=== PATIENT | female | born 1985 | race Caucasian/White ===

== ENCOUNTER → 2017-11-21 | Outpatient (CLI) | payer OTHER ==
[~2017-11-21] MED LIST: PRENTAB26 PO
== END | disposition home or self-care (01) ==
LOC: C.LABSPEC 14:26
PROVIDERS: ATTEND Obstetrics & Gynecology
DX: Z34.81 Encounter for supervision of other normal pregnancy, first trimester (principal)

== ENCOUNTER → 2017-11-21 | Outpatient (CLI) | payer OTHER | END | disposition home or self-care (01) | LOC: C.PAPS 16:40 | PROVIDERS: ATTEND Obstetrics & Gynecology | DX: Z34.81 Encounter for supervision of other normal pregnancy, first trimester (principal) ==

== ENCOUNTER → 2018-01-11 | Outpatient (CLI) | payer OTHER ==
--- NOTE | 2018-01-11 13:30 | DIAGNOSTIC IMAGING REPORT ---
LIMITED (US) CLINICAL HISTORY: 18.1 WEEKS CANNOT HEAR HEART BEAT COMPARISON STUDY: ultrasound 01/18/2016. FINDINGS: Real-time sonographic imaging of the fetus was performed with cash posting representative images submitted. heart rate was 149 bpm. The cervix is closed and measures up to 5 cm in length. There is a normal appearing anterior placenta. No evidence for subchorionic hematoma. Amniotic fluid volume appears to be within normal limits. anatomical survey was not performed. IMPRESSION: Single viable intrauterine gestation with a heart rate of 149 bpm. Electronically signed by: Yomi Mendoza M.D. 01/11/2018 1:28 PM Dictated Date/Time: 01/11/2018 1:15 PM
== END | disposition home or self-care (01) ==
LOC: C.ULTR 12:45
PROVIDERS: ATTEND Obstetrics & Gynecology
DX: O36.8320 Maternal care for abnormalities of the fetal heart rate or rhythm, second trimester, not applicable or unspecified (principal); Z3A.18 18 weeks gestation of pregnancy

== ENCOUNTER → 2018-02-03 | Outpatient (CLI) | payer OTHER | END | disposition home or self-care (01) | LOC: C.LAB 07:41 | PROVIDERS: ATTEND Obstetrics & Gynecology | DX: O99.810 Abnormal glucose complicating pregnancy (principal); Z3A.00 Weeks of gestation of pregnancy not specified ==

== ENCOUNTER → 2018-05-15 | Outpatient (CLI) | payer OTHER ==
[~2018-05-15] MED LIST changes: +ASPI-435; +LABE1TAB28 PO
== END | disposition home or self-care (01) ==
LOC: C.LABSPEC 14:44
PROVIDERS: ATTEND Obstetrics & Gynecology
DX: Z34.83 Encounter for supervision of other normal pregnancy, third trimester (principal); Z3A.00 Weeks of gestation of pregnancy not specified

== ENCOUNTER 2019-09-16 10:15 | Inpatient (IN) ==
--- OUTSIDE RECORDS SUMMARY | 2019-09-16 10:17 | External Medical Summary | Continuity of Care Document ---
:1985 Author Name Latonia Phipps, Provider Address Unavailable Unavailable , Care Team Providers Name Role Phone Chloe Phipps, Norbert Connell Unavailable [email or web address] Monica Wang Unavailable [email or web address] AARON Unavailable Unavailable Unavailable Unavailable Unavailable Problems Gestational diabetes mellitus (648.80) (O24.419) Allergies and Adverse Reactions Allergy history not documented Medications OneTouch Delica Lancets Fine MISC; Test 4 times daily Moise Harry S. Start: 23-Feb-2018 Quantity: 4 100 Unit Box Refills: 3 Keto-Diastix In Vitro Strip; USE DIRECTED. Moise Corona Norbert S. Start: 23-Feb-2018 Quantity: 1 100 Strip Box Refills: 3 OneTouch Verio In Vitro Strip; Check 4 x a day Rusty Corona Norbert S. Start: 23-Feb-2018 Quantity: 4 100 Strip Box Refills: 3 Procedures Procedures not documented Immunizations Immunizations not documented Plan of Treatment Planned Observations Planned Goals not documented Results No Known Results Results not documented Encounters Appointment; Malina Alvarenga R.D. 23-Feb-2018 14:00 Encounter Diagnosis: Problem not documented
--- OUTSIDE RECORDS SUMMARY | 2019-09-16 10:18 | External Medical Summary | Continuity of Care Document ---
:1985 Author Name Latonia Phipps, Provider Address Unavailable Unavailable , Care Team Providers Name Role Phone Chloe Phipps, Norbert Connell Unavailable [email or web address] Monica Wang Unavailable [email or web address] Marianela AARON Unavailable Unavailable Unavailable Unavailable Unavailable Problems Gestational diabetes mellitus (648.80) (O24.419) Allergies and Adverse Reactions Allergy history not documented Medications Keto-Diastix In Vitro Strip; USE DIRECTED. Moise Corona Norbert S. Start: 23-Feb-2018 Quantity: 1 100 Strip Box Refills: 3 OneTouch Verio In Vitro Strip; Check 4 x a day Rusty Corona Sep S. Start: 23-Feb-2018 Quantity: 4 100 Strip Box Refills: 3 OneTouch Delica Lancets Fine MISC; Test 4 times daily Carol castanon M.D. Sep S. Start: 23-Feb-2018 Quantity: 4 100 Unit Box Refills: 3 Procedures Procedures not documented Immunizations Immunizations not documented Plan of Treatment Planned Observations Planned Goals not documented Results No Known Results Results not documented Encounters Appointment; Malina Alvarenga R.D. 23-Feb-2018 14:00 Encounter Diagnosis: Problem not documented
[2019-09-16] MEDS ORDERED: SODIUM CHLORIDE 0.9% 1000ML 1,000 ML IV SCH (10:30)
[2019-09-16 11:30] LABS: Hematocrit (blood only) 38.9 % (37-47); Hemoglobin 13.2 g/dL (12.0-16.0); Immature Granulocytes # (auto) 0.03 K/uL (0.00-0.02); Immature Granulocytes % (auto) 0.4 %; Lymphocytes # (auto) 0.35 K/uL (1.2-3.4); Lymphocytes % (auto) 5.2 %; Mean Corpuscular Hemoglobin 30.5 pg (25-34); Mean Corpuscular Hgb Conc 33.9 g/dL (32-36); Mean Corpuscular Volume 89.8 fL (80-100); Mean Platelet Volume 11.5 fL (7.4-10.4); Monocytes # (auto) 0.32 K/uL (0.11-0.59); Monocytes % (auto) 4.8 %; Neutrophils % (auto) 89.6 %; Platelet Count 140 K/uL (130-400); RDW Coefficient of Variation 12.7 % (11.5-14.5); RDW Standard Deviation 41.6 fL (36.4-46.3); Red Blood Count 4.33 M/uL (4.2-5.4)
[2019-09-16 11:35] LABS: Appearance Urine Clear (Clear); Bacteria Urine Automated Negative (Negative); Bilirubin Urine Negative (Negative); Blood Urine Trace (Negative); Color Urine Dark Yellow; Epithelial Cell Urine Auto >30 /lpf (0-5); Glucose Urine UA Negative (Negative); Ketones Urine 2+ (Negative); Leukocyte Esterase Urine Trace (Negative); Nitrite Urine Negative (Negative); Protein Urine Trace (Negative); RBC Urine Automated 0-4 /hpf (0-4); Specific Gravity Urine 1.022 (1.000-1.030); Urobilinogen Urine Negative (Negative)
[2019-09-16 11:46] LABS: Albumin Level 3.8 gm/dl (3.4-5.0); BUN Creatinine Ratio 6.3 (10-20); Calcium 8.9 mg/dl (8.5-10.1); Creatinine Clr Calc Pharmacy 97.3 ml/min; Est GFR (African American) 82.7; Est GFR (Non-African American) 71.4; Magnesium 1.5 mg/dl (1.8-2.4); Potassium 3.1 mmol/L (3.5-5.1)
[2019-09-16 11:50] LABS: Bilirubin,Total 1.2 mg/dl (0.2-1); Globulin 3.9 gm/dl (2.5-4.0); Total Protein 7.7 gm/dl (6.4-8.2)
--- NOTE | 2019-09-16 12:41 | Emergency Department Note ---
History of Present Illness General Chief complaint: Abdominal Pain Stated complaint: ABDOMINAL PAIN, FEVER,NAUSEA Time Seen by Provider: 09/16/19 10:22 History of Present Illness Maximum Pain Intensity: 8 This is a 34-year-old female that presents to the emergency department via private vehicle with complaints of "abdominal pain, fever, nausea". The patient states that she was referred here by the family doctor to rule out appendicitis. She states that she has some mid to the right abdominal pain. She has associated nausea, diarrhea, intermittent fevers, decreased appetite and he adache. This is been ongoing since Monday night. It is worse with movement and ambulation. She had ibuprofen around 8:30 AM today. She rates her overall pain currently is an 8/10. She notes that she still has the appendix. Home Medications Home Medications Medication Instructions Recorded Confirmed Type ibuprofen 200 mg PO Q6H PRN 09/16/19 09/16/19 History Allergies Allergy/AdvReac Type Severity Reaction Status Date / Time No Known Allergies Allergy Unverified 09/16/19 11:17 Past Med/Surg History Medical History Anxiety Family history of diabetes mellitus History of depression HTN (hypertension) Morbid obesity with BMI of 40.0-44.9, adult hemorrhage Surgical History No history of previous surgery Social History Preferred Language: [place] Communication Ability: Effective Tank Inspector Required: No Beliefs That Will Affect Care: None marital status: Current Living Situation: Spouse Current Living Situation Comment: DAUGHTERS 2 YO AND 6 YO Feels Safe at Home: Yes Smoking Status: Former smoker Hx Alcohol Use: No Hx Substance Use: No Review of Systems A total of 10 systems reviewed and were otherwise negative Physical Exam Vital Signs Vital Signs - 24 hr 09/16/19 10:17 09/16/19 11:18 09/16/19 13:05 Temperature 37.9 C H Temperature Source Oral Pulse Rate 131 H Pulse Rate [Finger] 110 H 100 H Pulse Rhythm [Finger] Pulse Strength [Finger] Respiratory Rate 20 16 16 Respiratory Effort / Characteristics Non-Labored Spontaneous Respiratory Depth Normal Respiratory Pattern Blood Pressure 163/83 H Blood Pressure [Right Arm] 173/91 H 118/77 Blood Pressure Mean 109 Blood Pressure Mean [Right Arm] 118 90 Blood Pressure Position Sitting Blood Pressure Position [Right Arm] Pulse Oximetry 96 96 96 Oxygen Delivery Method Room Air Room Air Sepsis Recent Fever Within 48 Hours Yes Sepsis New/Unexplained Change in Mental Status No Sepsis Action Taken by Nursing No Action Required 09/16/19 14:36 09/16/19 15:55 09/16/19 15:57 Temperature 37.8 C H Temperature Source Oral Pulse Rate 103 H Pulse Rate [Finger] 103 H 116 H Pulse Rhythm [Finger] Regular Pulse Strength [Finger] Normal Respiratory Rate 16 20 24 Respiratory Effort / Characteristics Non-Labored Spontaneous Respiratory Depth Normal Respiratory Pattern Regular Blood Pressure 145/84 H Blood Pressure [Right Arm] 169/106 H 131/79 Blood Pressure Mean Blood Pressure Mean [Right Arm] 127 96 Blood Pressure Position Blood Pressure Position [Right Arm] Sitting Pulse Oximetry 98 95 96 Oxygen Delivery Method Room Air Room Air Sepsis Recent Fever Within 48 Hours Sepsis New/Unexplained Change in Mental Status Sepsis Action Taken by Nursing VITAL SIGNS - Vital signs and nursing notes were reviewed. Patient is febrile and tachycardic on arrival. GENERAL -34-year-old female appearing her stated age who is in no acute distress. She does not appear toxic, and is ambulating independently. Communicates well with provider and answers questions appropriately. SKIN - Without rashes. No meningeal or petechial rash. HEAD - NC/AT. EYES - Sclera anicteric. EARS - No deformities of external structures noted on gross examination bilaterally. NOSE - Midline and without cyanosis. No epistaxis or purulent drainage noted. MOUTH/OROPHARYNX - Without perioral cyanosis. NECK - Neck with FROM. No nuchal rigidity. LUNGS - Chest wall symmetric without accessory muscle use, intercostals retractions, or central cyanosis. Normal vesicular breath sounds CTA B/L. No wheezes, rales, or rhonchi appreciated. CARDIAC - RRR with S1/S2. No murmur, rubs, or gallops appreciated. ABDOMEN - Abdominal contour normal without pulsations or visible masses. BS normoactive all four quadrants. Patient has periumbilical and right lower quadrant abdominal tenderness on exam. The abdomen is soft, and nonrigid NEUROLOGIC - Cranial nerves II through XII grossly intact. PSYCH - A&O, and cooperates fully with examiner. Pt is very pleasant and interacts well with examiner. Course Administered Medications Ioversol (Optiray 320 100ml) 94 ml IV ONCE PRN PRN Reason: Interaction Checking Stop: 09/20/19 12:49 Last Admin: 09/16/19 12:51 Dose: 94 ml Documented by: [id number] Discontinued Medications Sodium Chloride (Nss 1000ml) 1,000 mls @ 999 mls/hr IV .Q1H1M OLGA Stop: 09/16/19 11:30 Last Infusion: 09/16/19 12:33 Dose: 0 mls/hr Documented by: [id number] Admin: 09/16/19 11:20 Dose: 999 mls/hr Documented by: [id number] Piperacillin Sod/Tazobactam Sod (Zosyn) 4.5 gm in 120 mls @ 240 mls/hr IV NOW ONE Stop: 09/16/19 14:49 Last Infusion: 09/16/19 15:06 Dose: 0 mls/hr Documented by: [id number] Admin: 09/16/19 14:35 Dose: 240 mls/hr Documented by: [id number] Acetaminophen (Ofirmev) 1,000 mg in 100 mls @ 400 mls/hr IV NOW STA Stop: 09/16/19 14:37 Last Infusion: 09/16/19 14:50 Dose: 0 mls/hr Documented by: [id number] Admin: 09/16/19 14:35 Dose: 400 mls/hr Documented by: [id number] Ondansetron HCl (Zofran) Confirm Administered Dose 4 mg .ROUTE .STK-MED ONE Stop: 09/16/19 14:39 Last Admin: 09/16/19 14:40 Dose: 4 mg Documented by: [id number] Scopolamine (Transderm-Scop) Confirm Administered Dose 1.5 mg .ROUTE .STK-MED ONE Stop: 09/16/19 16:13 Last Admin: 09/16/19 16:14 Dose: Not Given Documented by: [id number] Scopolamine (Transderm-Scop) 1.5 mg TD ONE ONE Stop: 09/16/19 16:13 Last Admin: 09/16/19 16:13 Dose: 1.5 mg Documented by: [id number] Medical Decision Making Laboratory Data Result diagrams: 09/16/19 11:15 09/16/19 11:15 Lab Results 09/16/19 09/16/1919 Range/Units 10:15 10:15 11:15 WBC 6.70 (4.8-10.8) K/uL RBC 4.33 (4.2-5.4) M/uL Hgb 13.2 (12.0-16.0) g/dL Hct 38.9 (37-47) % MCV 89.8 (80-100) fL MCH 30.5 (25-34) pg MCHC 33.9 (32-36) g/dL RDW Std Deviation 41.6 (36.4-46.3) fL RDW Coeff of Alfonso 12.7 (11.5-14.5) % Plt Count 140 (130-400) K/uL MPV 11.5 H (7.4-10.4) fL Immature Gran % (Auto) 0.4 % Neut % (Auto) 89.6 % Lymph % (Auto) 5.2 % [place] % (Auto) 4.8 % Eos % (Auto) 0.0 % Baso % (Auto) 0.0 % Immature Gran # (Auto) 0.03 H (0.00-0.02) K/uL Neut # (Auto) 6.00 (1.4-6.5) K/uL Lymph # (Auto) 0.35 L (1.2-3.4) K/uL [place] # (Auto) 0.32 (0.11-0.59) K/uL Eos # (Auto) 0.00 (0-0.5) K/uL Baso # (Auto) 0.00 (0-0.2) K/uL Sodium (136-145) mmol/L Potassium (3.5-5.1) mmol/L Chloride (98-107) mmol/L Carbon Dioxide (21-32) mmol/L Anion Gap (3-11) BUN (7-18) mg/dl Creatinine (0.6-1.2) mg/dl Est Cr Clr Drug Dosing ml/min Est GFR ( Amer) Est GFR (Non-Af Amer) BUN/Creatinine Ratio (10-20) Glucose (70-99) mg/dl Lactate (0.4-2.0) mmol/L Calcium (8.5-10.1) mg/dl Magnesium (1.8-2.4) mg/dl Total Bilirubin (0.2-1) mg/dl AST (15-37) U/L ALT (12-78) U/L Alkaline Phosphatase (45-117) U/L Total Protein (6.4-8.2) gm/dl Albumin (3.4-5.0) gm/dl Globulin (2.5-4.0) gm/dl Albumin/Globulin Ratio (0.9-2) Urine Color Dark Yellow Urine Appearance Clear (Clear) Urine pH 6.0 (4.5-7.5) Ur Specific [place] 1.022 (1.000-1.030) Urine Protein Trace H (Negative) Urine Glucose (UA) Negative (Negative) Urine Ketones 2+ H (Negative) Urine Blood Trace H (Negative) Urine Nitrite Negative (Negative) Urine Bilirubin Negative (Negative) Urine Urobilinogen Negative (Negative) Ur Leukocyte Esterase Trace H (Negative) Urine WBC (Auto) 1-5 (0-5) /hpf Urine RBC (Auto) 0-4 (0-4) /hpf U Hyaline Cast (Auto) 5-10 H (0-5) /lpf U Epithel Cells (Auto) >30 H (0-5) /lpf Urine Bacteria (Auto) Negative (Negative) POC Ur Test NEG (NEG) 09/16/19 09/16/19 Range/Units 11:15 11:15 WBC (4.8-10.8) K/uL RBC (4.2-5.4) M/uL Hgb (12.0-16.0) g/dL Hct (37-47) % MCV (80-100) fL MCH (25-34) pg MCHC (32-36) g/dL RDW Std Deviation (36.4-46.3) fL RDW Coeff of Alfonso (11.5-14.5) % Plt Count (130-400) K/uL MPV (7.4-10.4) fL Immature Gran % (Auto) % Neut % (Auto) % Lymph % (Auto) % [place] % (Auto) % Eos % (Auto) % Baso % (Auto) % Immature Gran # (Auto) (0.00-0.02) K/uL Neut # (Auto) (1.4-6.5) K/uL Lymph # (Auto) (1.2-3.4) K/uL [place] # (Auto) (0.11-0.59) K/uL Eos # (Auto) (0-0.5) K/uL Baso # (Auto) (0-0.2) K/uL Sodium 135 L (136-145) mmol/L Potassium 3.1 L (3.5-5.1) mmol/L Chloride 106 (98-107) mmol/L Carbon Dioxide 23 (21-32) mmol/L Anion Gap 6.0 (3-11) BUN 6 L (7-18) mg/dl Creatinine 1.03 (0.6-1.2) mg/dl Est Cr Clr Drug Dosing 97.3 ml/min Est GFR ( Amer) 82.7 Est GFR (Non-Af Amer) 71.4 BUN/Creatinine Ratio 6.3 L (10-20) Glucose 142 H (70-99) mg/dl Lactate 1.1 (0.4-2.0) mmol/L Calcium 8.9 (8.5-10.1) mg/dl Magnesium 1.5 L (1.8-2.4) mg/dl Total Bilirubin 1.2 H (0.2-1) mg/dl AST 23 (15-37) U/L ALT 15 (12-78) U/L Alkaline Phosphatase 82 (45-117) U/L Total Protein 7.7 (6.4-8.2) gm/dl Albumin 3.8 (3.4-5.0) gm/dl Globulin 3.9 (2.5-4.0) gm/dl Albumin/Globulin Ratio 1.0 (0.9-2) Urine Color Urine Appearance (Clear) Urine pH (4.5-7.5) Ur Specific [place] (1.000-1.030) Urine Protein (Negative) Urine Glucose (UA) (Negative) Urine Ketones (Negative) Urine Blood (Negative) Urine Nitrite (Negative) Urine Bilirubin (Negative) Urine Urobilinogen (Negative) Ur Leukocyte Esterase (Negative) Urine WBC (Auto) (0-5) /hpf Urine RBC (Auto) (0-4) /hpf U Hyaline Cast (Auto) (0-5) /lpf U Epithel Cells (Auto) (0-5) /lpf Urine Bacteria (Auto) (Negative) POC Ur Test (NEG) Imaging Data Radiologist's Impression: CT SCAN OF THE ABDOMEN AND PELVIS WITH IV CONTRAST CLINICAL HISTORY: Right lower quadrant abdominal pain. Diarrhea. COMPARISON STUDY: Abdominal CT dated 01/19/2014. TECHNIQUE: Following the IV administration of 94 cc of Optiray 320, CT scan of the abdomen and pelvis is performed from the lung bases to the proximal femora. Images are reviewed in the axial, sagittal, and coronal planes. IV contrast was administered without complication. A dose lowering technique was utilized adhering to the principles of ALARA. CT DOSE: 1434.57 mGy.cm FINDINGS: Lung bases: The heart is normal in size and without pericardial effusion. There is bibasilar atelectasis. The lung bases are otherwise clear. Liver: The contrast-enhanced liver is normal in size, contour, and attenuation. Fatty infiltration is seen adjacent to falciform ligament. There is no intrahepatic biliary ductal dilatation. The hepatic veins and portal veins are patent. Gallbladder: Unremarkable. Spleen: The spleen is enlarged measuring 16.3 cm in length. Pancreas: Unremarkable. Adrenal glands: Unremarkable. Kidneys: The contrast enhanced kidneys are normal in size and without hydronephrosis. The kidneys enhance symmetrically. Abdominal vasculature: The abdominal aorta is normal in course and caliber. Bowel: The small bowel and colon are normal in course and caliber. The appendix is is distended, measuring up to 1.6 cm in diameter. There is periappendiceal inflammation and fluid, and the appearance is consistent with acute appendicitis. No organized fluid collection is seen to suggest abscess. A calcified appendicolith is seen on image #240. Mild wall thickening of the ascending colon is likely related to adjacent appendicitis. Peritoneum: There is no intraperitoneal free air or abdominal ascites. There is a fat-containing umbilical hernia. Lymphadenopathy: None. Pelvic viscera: The bladder, uterus, and adnexa are normal as visualized noting an intrauterine device in place. Skeletal structures: No lytic or blastic lesions are seen. Sclerotic change is noted in the pubic symphysis. IMPRESSION: 1. Findings are consistent with acute appendicitis. 2. There is no organized fluid collection to suggest abscess and no intraperitoneal free air is seen. 3. Splenomegaly. 4. Mild wall thickening of the ascending colon is likely related to adjacent appendicitis. 5. Additional findings as above. ACT 112: Positive. There are findings on this exam that require communication between the performing entity and the patient following Patient Test Result Information Act ([place] Act 112) guidelines. Electronically signed by: Darryl Tse M.D. 09/16/2019 1:02 PM MDM Narrative Patient was seen and evaluated as above in room B 10. Review was performed of nursing notes and vital signs. After obtaining a thorough history and physical examination the above work up was performed. She presents to us today with abdominal pain, fever, nausea. Clinically there is concern for acute appendicitis. Patient is tachycardic and febrile on arrival, IV access was established, fluids were provided and she declined pain medication. CBC reveals no leukocytosis or anemia. No emergent metabolic disturbance. Hypokalemia at 3.1. Glucose 142. Magnesium 1.5. T bili 1.2. Urinalysis does not reveal UTI. UPT negative. CT scan of the abdomen pelvis was obtained with IV contrast and findings are consistent with acute appendicitis. Patient was reevaluated and did prefer something for the fever and was given IV Tylenol. Patient was upfront when I informed her upon the findings that she would prefer to have a hanane Jacob general surgeon. Prior to her telling me this, the on-call general surgeon was paged as soon as the diagnosis of acute appendicitis was confirmed via CT, to not delay her care. I informed her that the current on- call general surgeon for the emergency department is a Janett surgeon. To help accommodate the wishes of the patient, I did ask our education administrative assistant in the emergency department if there were other surgeons in house and I personally called over to the operating room and there was no other [facility] general surgeons on site. I then called over to the general surgery office for [facility], and it was identified that it did not appear a hanane Jacob surgeon would be able to perform this today. I then informed the patient upon this and offered her several alternatives such as transfer to another facility among others. Then she noted she would like to proceed with the general surgeon who was on-call, Dr. Oquendo. I will also note that I believe this is in the best interest of the patient as given her vital signs and CT imaging that the sooner the appendix is removed, the better the patient will do. I then had them page the on-call general surgery service, and I spoke to the surgical physician physician assistant psychiatry. She noted that they will be down to assess the patient, and in the meantime recommended Zosyn. This was ordered. Patient will be taken to the operating room for further evaluation and management. Just before the patient went to the operating room I was notified the patient had an increase of pain but shortly thereafter was taken to the operating room which I believe is in the best interest of the patient. Please refer to further documentation regarding her stay. Case was discussed with the attending physician. In the evaluation and treatment of this patient, the following differential diagnoses were considered: ASC, PA, Pneumonia, GERD, Cholecystitis, Ascending Cholangitis, Cholydocholithiasis, Bowel Obstruction, acute appendicitis, torsion, UTI, kidney stone, PE, Amongst Others. Impression & Plan Acute appendicitis Discharge Plan Visit Data Chief Complaint: Abdominal Pain Stated Complaint: ABDOMINAL PAIN, FEVER,NAUSEA ED Provider: sOcar Vinson ED Midlevel Provider: Alec Weathers Discharge Problem: Acute appendicitis Patient Disposition: Being Evaluated by Surgeon Condition: Good Discharge Instructions Interventions: ED Discharge Assessment Last Done: 09/16/19 15:55 Forms Stand Alone Forms: Call Back Authorization, [facility], Important Visit Information Prescriptions Prescriptions: No Action ibuprofen 200 mg Tablet 200 mg PO Q6H PRN (Reason: Pain) RF: 0 Referrals Referrals: Gloria Price DO [Primary Care Provider] -
[2019-09-16] MEDS ORDERED: IOVERSOL 100ml IV PRN (12:50)
--- NOTE | 2019-09-16 13:03 | CT Scan Report ---
CT SCAN OF THE ABDOMEN AND PELVIS WITH IV CONTRAST CLINICAL HISTORY: Right lower quadrant abdominal pain. Diarrhea. COMPARISON STUDY: Abdominal CT dated 01/19/2014. TECHNIQUE: Following the IV administration of 94 cc of Optiray 320, CT scan of the abdomen and pelvi s is performed from the lung bases to the proximal femora. Images are reviewed in the axial, sagittal , and coronal planes. IV contrast was administered without complication. A dose lowering technique wa s utilized adhering to the principles of ALARA. CT DOSE: 1434.57 mGy.cm FINDINGS: Lung bases: The heart is normal in size and without pericardial effusion. There is bibasilar atelecta sis. The lung bases are otherwise clear. Liver: The contrast-enhanced liver is normal in size, contour, and attenuation. Fatty infiltration is seen adjacent to falciform ligament. There is no intrahepatic biliary ductal dilatation. The hepatic veins and portal veins are patent. Gallbladder: Unremarkable. Spleen: The spleen is enlarged measuring 16.3 cm in length. Pancreas: Unremarkable. Adrenal glands: Unremarkable. Kidneys: The contrast enhanced kidneys are normal in size and without hydronephrosis. The kidneys enh ance symmetrically. Abdominal vasculature: The abdominal aorta is normal in course and caliber. Bowel: The small bowel and colon are normal in course and caliber. The appendix is is distended, mendoza suring up to 1.6 cm in diameter. There is periappendiceal inflammation and fluid, and the appearance is consistent with acute appendicitis. No organized fluid collection is seen to suggest abscess. A ca lcified appendicolith is seen on image #240. Mild wall thickening of the ascending colon is likely re lated to adjacent appendicitis. Peritoneum: There is no intraperitoneal free air or abdominal ascites. There is a fat-containing umbi lical hernia. Lymphadenopathy: None. Pelvic viscera: The bladder, uterus, and adnexa are normal as visualized noting an intrauterine devic e in place. Skeletal structures: No lytic or blastic lesions are seen. Sclerotic change is noted in the pubic sym physis. IMPRESSION: 1. Findings are consistent with acute appendicitis. 2. There is no organized fluid collection to suggest abscess and no intraperitoneal free air is seen. 3. Splenomegaly. 4. Mild wall thickening of the ascending colon is likely related to adjacent appendicitis. 5. Additional findings as above. ACT 112: Positive. There are findings on this exam that require communication between the performing entity and the patient following Patient Test Result Information Act ([place] Act 112) guidelines. Electronically signed by: Darryl Tse M.D. 09/16/2019 1:02 PM
[2019-09-16] MEDS ORDERED: PIPERACILLIN/TAZOBACTAM 4.5 GM/120 ML BAG IV ONE (14:20)
[2019-09-16] MEDS ORDERED: PIPERACILL/TAZOBAC CONSULT ACTIVE PRN ×2 (14:20→20:00)
[2019-09-16] MEDS ORDERED: ACETAMINOPHEN 1,000 MG/100 ML VIAL IV STA (14:23)
[2019-09-16] MEDS ORDERED: ONDANSETRON INJ 2 MG/ML 2 ML VIAL ONE ×2 (14:38→16:55)
--- NOTE | 2019-09-16 15:04 | History & Physical Report ---
Date of Service September 16, 2019 Assessment & Plan (1) Acute appendicitis: 34 year-old female with 1.5 day history of right lower abdominal pain with associated diarrhea, nausea, vomiting and fever. CT scan showing dilated appendix at 1.6 cm with appendicolith consistent with acute appendicitis . No signs of perforation or abscess on imaging. Abdomen is soft but tender in RLQ. No leukocytosis. Febrile here in ED 37.9. Plan: Plan to take patient to operating room for laparoscopic appendectomy possible open. Discussed procedure and risks including bleeding, infection, intraabdominal abscess, staple leak, injury to surrounding organs/tissues, cardiopulmonary complications, blood clots. Patient understood and informed consent obtained Start IV Zosyn IV pain medication as needed Will go to med/surg post op Dr. Oquendo has seen and examined pt, agrees with above. History of Present Illness Chief Complaint: Abdominal pain Primary Care Provider: Gloria Price DO Christina is a 34 year-old female who presented to emergency department today with complaint of Right lower quadrant abdominal pain that began Monday evening. Patient states she had associated diarrhea as well as nausea and vomiting. She had fever high of 102.7 at home. She states pain consistently increased over the weekend. Never had similar type of pain before. Has not had much of an appetite. ER work-up included labs which showed no leukocytosis. CT scan of abdomen and pelvis showing dilated appendix at 1.6 cm with an appendicolith present cons istent with acute appendicitis. There is no fluid collection to suggest abscess or perforation. She does have splenomegaly with spleen measuring 16.3 cm. Vital signs showed heart rate in the 130s and blood pressure 169/106. She states she usually does not have any issues with her blood pressure but is nervous about needing surgery. No prior abdominal surgeries. No blood thinning agents. No family history of blood clots or bleeding disorders. Allergies Allergy/AdvReac Type Severity Reaction Status Date / Time No Known Allergies Allergy Unverified 09/16/19 11:17 Home Medications Home Medications Medication Instructions Recorded Confirmed Type ibuprofen 200 mg PO Q6H PRN 09/16/19 09/16/19 History Past Med/Surg History Social History Preferred Language: Nepali Communication Ability: Effective Umbrella Finisher Required: No Beliefs That Will Affect Care: None marital status: Current Living Situation: Spouse Current Living Situation Comment: DAUGHTERS 2 YO AND 6 YO Feels Safe at Home: Yes Smoking Status: Former smoker Hx Alcohol Use: No Hx Substance Use: No Review of Systems Review of Systems: All systems reviewed & are unremarkable except as noted in HPI & below Physical Exam Constitutional: WD/WN, vitals as above no acute distress Respiratory: normal respiratory effort; no respiratory distress Gastrointestinal (Abdomen): Inspection/Auscultation: abdomen normal to inspection; abdomen not distended Percussion/Palpation: + abdomen tender (RLQ), + guarding (RLQ) and abdomen soft; abdomen not rigid Skin: no rashes, warm and dry Psychiatric: A+Ox3, euthymic affect Results & Data Vital Signs (Past 12 Hours) Vital Signs Temp Pulse Pulse Resp BP BP Pulse Ox 09/16/19 14:36 103 H 16 169/106 H 98 09/16/19 13:05 100 H 16 118/77 96 09/16/19 11:18 110 H 16 173/91 H 96 09/16/19 10:17 37.9 C H 131 H 20 163/83 H 96 Laboratory Results 09/16/19 09/16/19 09/16/19 Range/Units 11:15 11:15 11:15 WBC 6.70 (4.8-10.8) K/uL RBC 4.33 (4.2-5.4) M/uL Hgb 13.2 (12.0-16.0) g/dL Hct 38.9 (37-47) % MCV 89.8 (80-100) fL MCH 30.5 (25-34) pg MCHC 33.9 (32-36) g/dL RDW Std Deviation 41.6 (36.4-46.3) fL RDW Coeff of Alfonso 12.7 (11.5-14.5) % Plt Count 140 (130-400) K/uL MPV 11.5 H (7.4-10.4) fL Immature Gran % (Auto) 0.4 % Neut % (Auto) 89.6 % Lymph % (Auto) 5.2 % [place] % (Auto) 4.8 % Eos % (Auto) 0.0 % Baso % (Auto) 0.0 % Immature Gran # (Auto) 0.03 H (0.00-0.02) K/uL Neut # (Auto) 6.00 (1.4-6.5) K/uL Lymph # (Auto) 0.35 L (1.2-3.4) K/uL [place] # (Auto) 0.32 (0.11-0.59) K/uL Eos # (Auto) 0.00 (0-0.5) K/uL Baso # (Auto) 0.00 (0-0.2) K/uL Sodium 135 L (136-145) mmol/L Potassium 3.1 L (3.5-5.1) mmol/L Chloride 106 (98-107) mmol/L Carbon Dioxide 23 (21-32) mmol/L Anion Gap 6.0 (3-11) BUN 6 L (7-18) mg/dl Creatinine 1.03 (0.6-1.2) mg/dl Est Cr Clr Drug Dosing 97.3 ml/min Est GFR ( Amer) 82.7 Est GFR (Non-Af Amer) 71.4 BUN/Creatinine Ratio 6.3 L (10-20) Glucose 142 H (70-99) mg/dl Lactate 1.1 (0.4-2.0) mmol/L Calcium 8.9 (8.5-10.1) mg/dl Magnesium 1.5 L (1.8-2.4) mg/dl Total Bilirubin 1.2 H (0.2-1) mg/dl AST 23 (15-37) U/L ALT 15 (12-78) U/L Alkaline Phosphatase 82 (45-117) U/L Total Protein 7.7 (6.4-8.2) gm/dl Albumin 3.8 (3.4-5.0) gm/dl Globulin 3.9 (2.5-4.0) gm/dl Albumin/Globulin Ratio 1.0 (0.9-2) Urine Color Urine Appearance (Clear) Urine pH (4.5-7.5) Ur Specific [place] (1.000-1.030) Urine Protein (Negative) Urine Glucose (UA) (Negative) Urine Ketones (Negative) Urine Blood (Negative) Urine Nitrite (Negative) Urine Bilirubin (Negative) Urine Urobilinogen (Negative) Ur Leukocyte Esterase (Negative) Urine WBC (Auto) (0-5) /hpf Urine RBC (Auto) (0-4) /hpf U Hyaline Cast (Auto) (0-5) /lpf U Epithel Cells (Auto) (0-5) /lpf Urine Bacteria (Auto) (Negative) POC Ur Test (NEG) 09/16/19 09/16/19 Range/Units 10:15 10:15 WBC (4.8-10.8) K/uL RBC (4.2-5.4) M/uL Hgb (12.0-16.0) g/dL Hct (37-47) % MCV (80-100) fL MCH (25-34) pg MCHC (32-36) g/dL RDW Std Deviation (36.4-46.3) fL RDW Coeff of Alfonso (11.5-14.5) % Plt Count (130-400) K/uL MPV (7.4-10.4) fL Immature Gran % (Auto) % Neut % (Auto) % Lymph % (Auto) % [place] % (Auto) % Eos % (Auto) % Baso % (Auto) % Immature Gran # (Auto) (0.00-0.02) K/uL Neut # (Auto) (1.4-6.5) K/uL Lymph # (Auto) (1.2-3.4) K/uL [place] # (Auto) (0.11-0.59) K/uL Eos # (Auto) (0-0.5) K/uL Baso # (Auto) (0-0.2) K/uL Sodium (136-145) mmol/L Potassium (3.5-5.1) mmol/L Chloride (98-107) mmol/L Carbon Dioxide (21-32) mmol/L Anion Gap (3-11) BUN (7-18) mg/dl Creatinine (0.6-1.2) mg/dl Est Cr Clr Drug Dosing ml/min Est GFR ( Amer) Est GFR (Non-Af Amer) BUN/Creatinine Ratio (10-20) Glucose (70-99) mg/dl Lactate (0.4-2.0) mmol/L Calcium (8.5-10.1) mg/dl Magnesium (1.8-2.4) mg/dl Total Bilirubin (0.2-1) mg/dl AST (15-37) U/L ALT (12-78) U/L Alkaline Phosphatase (45-117) U/L Total Protein (6.4-8.2) gm/dl Albumin (3.4-5.0) gm/dl Globulin (2.5-4.0) gm/dl Albumin/Globulin Ratio (0.9-2) Urine Color Dark Yellow Urine Appearance Clear (Clear) Urine pH 6.0 (4.5-7.5) Ur Specific [place] 1.022 (1.000-1.030) Urine Protein Trace H (Negative) Urine Glucose (UA) Negative (Negative) Urine Ketones 2+ H (Negative) Urine Blood Trace H (Negative) Urine Nitrite Negative (Negative) Urine Bilirubin Negative (Negative) Urine Urobilinogen Negative (Negative) Ur Leukocyte Esterase Trace H (Negative) Urine WBC (Auto) 1-5 (0-5) /hpf Urine RBC (Auto) 0-4 (0-4) /hpf U Hyaline Cast (Auto) 5-10 H (0-5) /lpf U Epithel Cells (Auto) >30 H (0-5) /lpf Urine Bacteria (Auto) Negative (Negative) POC Ur Test NEG (NEG) Diagnostic Findings CT SCAN OF THE ABDOMEN AND PELVIS WITH IV CONTRAST CLINICAL HISTORY: Right lower quadrant abdominal pain. Diarrhea. COMPARISON STUDY: Abdominal CT dated 01/19/2014. TECHNIQUE: Following the IV administration of 94 cc of Optiray 320, CT scan of the abdomen and pelvis is performed from the lung bases to the proximal femora. Images are reviewed in the axial, sagittal, and coronal planes. IV contrast was administered without complication. A dose lowering technique was utilized adhering to the principles of ALARA. CT DOSE: 1434.57 mGy.cm FINDINGS: Lung bases: The heart is normal in size and without pericardial effusion. There is bibasilar atelectasis. The lung bases are otherwise clear. Liver: The contrast-enhanced liver is normal in size, contour, and attenuation. Fatty infiltration is seen adjacent to falciform ligament. There is no intrahepatic biliary ductal dilatation. The hepatic veins and portal veins are patent. Gallbladder: Unremarkable. Spleen: The spleen is enlarged measuring 16.3 cm in length. Pancreas: Unremarkable. Adrenal glands: Unremarkable. Kidneys: The contrast enhanced kidneys are normal in size and without hydronephrosis. The kidneys enhance symmetrically. Abdominal vasculature: The abdominal aorta is normal in course and caliber. Bowel: The small bowel and colon are normal in course and caliber. The appendix is is distended, measuring up to 1.6 cm in diameter. There is periappendiceal inflammation and fluid, and the appearance is consistent with acute appendicitis. No organized fluid collection is seen to suggest abscess. A calcified appendicolith is seen on image #240. Mild wall thickening of the ascending colon is likely related to adjacent appendicitis. Peritoneum: There is no intraperitoneal free air or abdominal ascites. There is a fat-containing umbilical hernia. Lymphadenopathy: None. Pelvic viscera: The bladder, uterus, and adnexa are normal as visualized noting an intrauterine device in place. Skeletal structures: No lytic or blastic lesions are seen. Sclerotic change is noted in the pubic symphysis. IMPRESSION: 1. Findings are consistent with acute appendicitis. 2. There is no organized fluid collection to suggest abscess and no intraperitoneal free air is seen. 3. Splenomegaly. 4. Mild wall thickening of the ascending colon is likely related to adjacent appendicitis. 5. Additional findings as above. Code Status & VTE Plan VTE Prophylaxis Plan VTE Prophylaxis will be ordered: Yes
[2019-09-16] MEDS ORDERED: PROPOFOL IV EMULSION 10 MG/ML 20 ML VIAL IV ONE (15:09)
[2019-09-16] MEDS ORDERED: fentaNYL citrate 100 MCG/2 ML VIAL ONE ×4 (15:09→18:18)
[2019-09-16] MEDS ORDERED: LIDOCAINE HCL 2% 2 ML VIAL/AMP(20MG/ML) INFIL ONE (15:09)
[2019-09-16] MEDS ORDERED: ROCURONIUM BROMID 50MG/5ML SYR ONE (15:09)
[2019-09-16] MEDS ORDERED: MIDAZOLAM HCL 1 MG/ML 2ML VIAL ONE (15:10)
[2019-09-16] MEDS ORDERED: PROMETHAZINE HCL 12.5 MG in SODIUM CHLORIDE 0.9% 50 ML IV PRN (16:12)
[2019-09-16] MEDS ORDERED: HYDROmorphone INJ 1 MG/ML SYRINGE IV PRN (16:12)
[2019-09-16] MEDS ORDERED: ONDANSETRON INJ 2 MG/ML 2 ML VIAL IV PRN ×2 (16:12→20:00)
[2019-09-16] MEDS ORDERED: ATROPINE SULFATE 0.1 MG/ML 10ML SYR IV PRN (16:12)
[2019-09-16] MEDS ORDERED: ePHEDrine sulfate 50 MG/ML AMP IV PRN (16:12)
[2019-09-16] MEDS ORDERED: SCOPOLAMINE 1.5 MG TDSY TD ONE (16:12)
[2019-09-16] MEDS ORDERED: fentaNYL citrate 100 MCG/2 ML VIAL IV PRN (16:12)
[2019-09-16] MEDS ORDERED: SCOPOLAMINE 1.5 MG TDSY ONE (16:12)
--- NOTE | 2019-09-16 16:12 | History & Physical Bridge Note ---
Date of Service September 16, 2019 History & Physical Bridge Note I have examined the patient, reviewed the History & Physical and in the interval since the performance of the History & Physical I have noted the following changes of clinical significance: no changes noted
--- NOTE | 2019-09-16 16:12 | Anesthesiology Consultation ---
Date of Service September 16, 2019 Assessment & Plan (1) Encounter for pre-operative examination: Chart Review Chart Review: Acceptable Risk for Surgery and Patient NOT seen in Pre Admission Testing Consults Requested none ASA ASA3 Proposed Anesthesia Anesthesia Type: General Risk / Benefits Reviewed With: PT / POA / Parent / Guardian, Accepts Plan and Informed Consent Obtained History Surgery Operation Date: 09/16/19 10:10 Proposed Procedures p Laparoscopic Appendectomy - Andi Oquendo MD Height/Weight Height: 5 ft 6 in Weight: 109.3 kg Allergies Allergy/AdvReac Type Severity Reaction Status Date / Time No Known Allergies Allergy Unverified 09/16/19 11:17 Medications Home Medications Medication Instructions Recorded Confirmed Last Taken ibuprofen 200 mg PO Q6H PRN 09/16/19 09/16/19 09/16/19 09:00 400 mg Active Medications Generic Name Dose Route Start Last Admin Trade Name Freq PRN Reason Stop Dose Admin Ioversol 94 ml 09/16/19 12:50 09/16/19 12:51 Optiray 320 100ml IV 09/20/19 12:49 94 ml ONCE PRN Administration Interaction Checking NPO Date Last Intake of Fluids: 09/16/19 Time Last Intake of Fluids: 09:00 Date Last Intake of Solids: 09/16/19 Time Last Intake of Solids: 09:00 Past Medical History Medical History Anxiety Family history of diabetes mellitus History of depression HTN (hypertension) Morbid obesity with BMI of 40.0-44.9, adult hemorrhage Exercise / Class Metabolic Activity II 4-5 Yardwork/Stairs/Walk up hill Past Surgical History Surgical History No history of previous surgery Past Anesthesia History No Family Hx of Anesthesia Complications History of PONV Hx of Motion Sickness Social History Smoking Status: Former smoker Hx Alcohol Use: No Hx Substance Use: No Review of Systems Positive for nausea Negative for chest pain or shortness of breath. Physical Exam Vital Signs Last Vital Signs Temp 37.8 C H 09/16/19 15:57 Pulse 116 H 09/16/19 15:57 Resp 24 09/16/19 15:57 BP 131/79 09/16/19 15:57 Pulse Ox 96 09/16/19 15:57 Constitutional + morbidly obese ENMT Mouth: no TMJ abnormality and oral opening not small Thyromental Distance: > or= 3.5 Finger Breadths Mallampati Class: III Neck normal visual inspection, + short neck and + thick neck; neck extension not limited Respiratory normal respiratory effort Auscultation: lungs clear to auscultation bilaterally Cardiovascular Rate/Rhythm: regular rate and regular rhythm Heart Sounds: no murmur Neurologic moves all extremities Psychiatric Orientation: alert and oriented x 3 Testing Laboratory Results 09/16/19 11:15 09/16/19 11:15 Urine Color Dark Yellow 09/16/19 10:15 Urine Appearance Clear (Clear) 09/16/19 10:15 Urine pH 6.0 (4.5-7.5) 09/16/19 10:15 Ur Specific [place] 1.022 (1.000-1.030) 09/16/19 10:15 Urine Protein Trace (Negative) H 09/16/19 10:15 Urine Glucose (UA) Negative (Negative) 09/16/19 10:15 Urine Ketones 2+ (Negative) H 09/16/19 10:15 Urine Nitrite Negative (Negative) 09/16/19 10:15 Ur Leukocyte Esterase Trace (Negative) H 09/16/19 10:15 Urine WBC (Auto) 1-5 /hpf (0-5) 09/16/19 10:15 Urine RBC (Auto) 0-4 /hpf (0-4) 09/16/19 10:15 U Hyaline Cast (Auto) 5-10 /lpf (0-5) H 09/16/19 10:15 U Epithel Cells (Auto) >30 /lpf (0-5) H 09/16/19 10:15 Urine Bacteria (Auto) Negative (Negative) 09/16/19 10:15 09/16/19 10:15 POC Ur Test NEG
[2019-09-16] MEDS ORDERED: BUPIVACAINE 0.5 % 5 MG/1 ML MPF 30ML VIAL ONE (16:19)
[2019-09-16] MEDS ORDERED: LIDOCAINE HCL 1% 20 ML VIAL ONE (16:19)
[2019-09-16] MEDS ORDERED: BACITRACIN OINT 15 GM TUBE ONE (16:32)
[2019-09-16] MEDS ORDERED: NEOSTIGMINE METHYLSULFATE 5 MG/5 ML SYR ONE (16:55)
[2019-09-16] MEDS ORDERED: DEXAMETHASONE SOD INJ 4 MG/ML VIAL ONE (16:55)
[2019-09-16] MEDS ORDERED: GLYCOPYRROLATE 0.2 MG/ML VIAL ONE (16:55)
[2019-09-16] MEDS ORDERED: SUCCINYLCHOLINE CHLORIDE 20 MG/ML 10 ML VIAL ONE (16:56)
[2019-09-16] MEDS ORDERED: KETOROLAC 30 MG/ML VIAL ONE (18:02)
[2019-09-16] MEDS ORDERED: HYDROmorphone INJ 2 MG/ML SYR/VIAL ONE (18:19)
--- NOTE | 2019-09-16 18:26 | Post Operative Brief Note ---
Immediate Post Op Note v1 Date of Surgery September 16, 2019 Pre & Post Diagnosis Operation Date: 09/16/19 10:10 Pre-Op Diagnosis: Acute appendicitis Post-Op Diagnosis: Acute appendicitis I identified the patient and participated in the time-out.: Yes Procedure Operation Date: 09/16/19 10:10 Actual Procedures p Laparoscopic Appendectomy(Not Applicable) - Andi Oquendo MD Surgeon Andi Oquendo MD Tin Recovery Worker SARA Pastrana Estimated Blood Loss 10 Findings Consistent with Post-Op Diagnosis significant inflammation and enlarge on appendix, retro-cecum position Fluids 1200ml Specimens appendix Anesthesia Type General Complications none Disposition Accompanied Patient To Recovery: Yes Disposition: Recovery Room Overlapping Procedure I was immediately available: during the entire case.
--- NOTE | 2019-09-16 18:58 | Anesthesiology Progress Note ---
Date of Service September 16, 2019 Anesthesia Post Procedure Vital Signs Vital Signs: Temp Pulse Pulse Pulse Resp BP BP 09/16/19 18:46 36.9 C 103 H 18 115/78 09/16/19 15:57 37.8 C H 116 H 24 131/79 09/16/19 15:55 103 H 20 145/84 H 09/16/19 14:36 103 H 16 169/106 H 09/16/19 13:05 100 H 16 118/77 09/16/19 11:18 110 H 16 173/91 H 09/16/19 10:17 37.9 C H 131 H 20 163/83 H Pulse Ox 09/16/19 18:46 88 L 09/16/19 15:57 96 09/16/19 15:55 95 09/16/19 14:36 98 09/16/19 13:05 96 09/16/19 11:18 96 09/16/19 10:17 96 Pain Intensity Abdomen: Pain Intensity: 0 Transfer of Care Handoff Completed per policy Notes Mental Status: alert / awake / arousable and participated in evaluation Patient Amnestic to Procedure: Yes Nausea / Vomiting: adequately controlled Pain: adequately controlled Airway Patency, RR, SpO2: stable & adequate BP & HR: stable & adequate Hydration State: stable & adequate Anesthetic Complications: no major complications apparent and Pt Satisfied with anesthetic care
--- NOTE | 2019-09-16 19:21 | Operative Report ---
DATE OF OPERATION: 09/16/2019 PREOPERATIVE DIAGNOSIS: Acute appendicitis. POSTOPERATIVE DIAGNOSIS: Acute appendicitis. PROCEDURE: Laparoscopic appendectomy. SURGEON: Andi Oquendo MD ANESTHESIA: General. ESTIMATED BLOOD LOSS: About 10 mL. FINDINGS: Acute appendicitis with significant inflammation, enlarged appendix. COMPLICATIONS: None. INDICATIONS FOR THE PROCEDURE: This is a 34-year-old female who presented to ED with acute abdominal pain, CT scan diagnosis of acute appendicitis. I recommended to do a laparoscopic appendectomy, possible open. I did talk to the patient about the benefit and risk, alternate procedure. I indicated the risks may include but not limited such as bleeding, infection, abscess, injury to the bowel, injury to other organs. The patient understands. She signed informed consent and I answered all questions. DETAILS OF PROCEDURE: We brought the patient to the OR, put the patient in the supine position. The patient received SCD on bilateral legs to prevent DVT. Also, patient received 3.375 grams Zosyn IV for prophylactic antibiotic. The patient received general anesthesia without difficulties. Abdomen was appropriately draped in routine sterile fashion. After timeout, I injected the local anesthesia by using 1% lidocaine mixed with 0.5% Marcaine just above umbilicus. Then I made a small incision just above umbilicus, opened fascia and opened peritoneum under direct vision, put a Chago trocar in, connected to CO2 to create pneumoperitoneum. Flow rate at 6 liter per minute. Pressure not more than 14 mmHg. Once we got a nice pneumoperitoneum, we put a camera in, looked around the abdomen, shows normal finding on the small bowel, large bowel, liver, gallbladder; however, there was some free fluid in the abdomen. At this moment, we could not see any appendix. Then, we put another two 5 mm trocar on the left lower quadrant where we mobilized the cecum and found the patient had retrocecum position for appendix. The appendix was significantly enlarged, the size about 1.6 cm diameter and significant inflammation. At this moment in order to expose the appendix better, we put another 5 mm trocar on the right upper quadrant. My telecom assistant hold the cecum and again dissection of the appendix from retrocecum based on the significant inflammation, we used the harmonic to take down appendiceal, which had no active bleeding. Then, we used a 45 mm Endo-KRISTINA staple, transection on the base of the appendix, rechecked the staple line intact. No leak, no active bleeding and we completely removed the whole appendix, significantly enlarged and inflammation on the appendix. We put the bag in to remove appendix through the catch bag, then we reinserted Chago trocar in, connected to CO2 to create pneumoperitoneum, again looked around the abdomen, shows staple line intact, no leak from the staple line, no injury to other organs. We also suctioned some free fluid from the pelvic and the right lower quadrant and then we removed all trocar under direct vision. No active bleeding from the trocar sites. Pneumoperitoneum was released. Then I closed the umbilical incision, fascial layer by using #1 Vicryl [id number] x2, closed subcutaneous layer by using 2-0 Vicryl interrupted and closed skin by using 4-0 Vicryl continuous running, closed another three 5 mm trocar site at skin only by using 4-0 Vicryl and then we put the dressing on. The patient tolerated the procedure well. All instrument, needle and sponge count were correct x2 at the end of the case. The patient transferred to recovery room in stable condition. Specimen sent to pathology and the before procedure. The patient also received Rendon catheter insertion based on patient had significant urine concentration, we leave the Rendon overnight. After procedure, I did talk to the patient and family member about the OR finding and procedure we did, they understand. I attest to the content of the Intraoperative Record and any orders documented therein. Any exception s are noted below.
[2019-09-16] MEDS ORDERED: IBUPROFEN 200 MG TAB PO PRN (20:00)
[2019-09-16] MEDS ORDERED: HYDROmorphone INJ 0.5 MG/0.5 ML SYR IV PRN (20:00)
[2019-09-16] MEDS ORDERED: ACETAMINOPHEN 325 MG TAB PO PRN (20:00)
[2019-09-16] MEDS ORDERED: PIPERACILLIN/TAZOBACTAM 3.375 GM in DEXTROSE 5% 100 ML IV SCH (20:00)
[2019-09-16] MEDS ORDERED: OXYCODONE/ACETAMINOPHEN 5mg/325mg TAB PO PRN (20:00)
[2019-09-16] MEDS: LACTATED RINGER'S 1,000 ML IV SCH (20:59)
[2019-09-16] MEDS: PIPERACILLIN/TAZOBACTAM 4.5 GM in DEXTROSE 5% 100 ML IV SCH (21:01)
[2019-09-16] MEDS: CHECK SCOPOLAMINE PATCH PLACEMENT SCH (23:41)
[2019-09-17] MEDS: PIPERACILLIN/TAZOBACTAM 4.5 GM in DEXTROSE 5% 100 ML IV SCH (03:15)
[2019-09-17] MEDS: LACTATED RINGER'S 1,000 ML IV SCH (05:00)
[2019-09-17 05:37] LABS: Hemoglobin 12.2 g/dL (12.0-16.0); Immature Granulocytes # (auto) 0.02 K/uL (0.00-0.02); Immature Granulocytes % (auto) 0.3 %; Lymphocytes # (auto) 0.81 K/uL (1.2-3.4); Lymphocytes % (auto) 11.6 %; Mean Corpuscular Hemoglobin 30.7 pg (25-34); Mean Platelet Volume 11.2 fL (7.4-10.4); Monocytes % (auto) 5.7 %; Neutrophils # (auto) 5.76 K/uL (1.4-6.5); Neutrophils % (auto) 82.4 %; Platelet Count 147 K/uL (130-400); RDW Coefficient of Variation 13.3 % (11.5-14.5); RDW Standard Deviation 45.1 fL (36.4-46.3); Red Blood Count 3.98 M/uL (4.2-5.4); White Blood Count 6.99 K/uL (4.8-10.8)
[2019-09-17 06:07] LABS: Calcium 8.5 mg/dl (8.5-10.1); Creatinine Clr Calc Pharmacy 95.6 ml/min; Est GFR (African American) 74.7; Est GFR (Non-African American) 64.5
[2019-09-17 06:11] LABS: Albumin Globulin Ratio 0.8 (0.9-2); Bilirubin,Total 1.9 mg/dl (0.2-1)
[2019-09-17] MEDS: CHECK SCOPOLAMINE PATCH PLACEMENT SCH (07:25)
--- NOTE | 2019-09-17 08:22 | Anesthesiology Progress Note ---
Date of Service September 17, 2019 Anesthesia Post Procedure Vital Signs Vital Signs: Temp Pulse Pulse Pulse Pulse Resp BP 09/17/19 07:55 37.0 C 80 14 09/17/19 03:10 37.2 C 71 14 09/16/19 22:50 37.0 C 86 16 09/16/19 21:54 36.8 C 78 17 09/16/19 20:53 36.7 C 82 17 09/16/19 19:50 36.9 C 85 16 09/16/19 19:35 79 19 09/16/19 19:25 37.1 C 82 20 09/16/19 19:15 93 H 15 09/16/19 19:05 86 20 09/16/19 18:55 90 16 09/16/19 18:46 36.9 C 103 H 18 09/16/19 15:57 37.8 C H 116 H 24 09/16/19 15:55 103 H 20 145/84 H 09/16/19 14:36 103 H 16 09/16/19 13:05 100 H 16 09/16/19 11:18 110 H 16 09/16/19 10:17 37.9 C H 131 H 20 163/83 H BP Pulse Ox 09/17/19 07:55 129/79 94 09/17/19 03:10 121/80 93 09/16/19 22:50 117/83 94 09/16/19 21:54 118/74 94 09/16/19 20:53 103/73 95 09/16/19 19:50 118/81 96 09/16/19 19:35 111/71 95 09/16/19 19:25 112/72 95 09/16/19 19:15 116/71 94 09/16/19 19:05 109/66 97 09/16/19 18:55 112/77 94 09/16/19 18:46 115/78 88 L 09/16/19 15:57 131/79 96 09/16/19 15:55 95 09/16/19 14:36 169/106 H 98 09/16/19 13:05 118/77 96 09/16/19 11:18 173/91 H 96 09/16/19 10:17 96 Pain Intensity Abdomen: Pain Intensity: 4 Notes Mental Status: alert / awake / arousable and participated in evaluation Patient Amnestic to Procedure: Yes Nausea / Vomiting: adequately controlled Pain: adequately controlled Airway Patency, RR, SpO2: stable & adequate BP & HR: stable & adequate Hydration State: stable & adequate Anesthetic Complications: no major complications apparent and Pt Satisfied with anesthetic care
--- NOTE | 2019-09-17 09:42 | Infectious Disease Consult ---
Date of Consultation September 17, 2019 Assessment & Plan (1) Gram negative sepsis: can continue zosyn for now. ID/sensitivity of gnr pending and suspect will not be available until tomorrow. Discussed with primary service. she could be d/c on po levaquin 500mg daily x 14 days. no risk factors noted for resistant gnr. However, if isolate is not levaquin sensitive this will require change in abx. I will be away until 09/30/2019, if any ongoing ID concerns, she may need transfer. (2) Acute appendicitis: History of Present Illness Attending Physician: Andi Oquendo MD pt admitted with n/v x 3-4 days, fever 102 and rlq pain, ct in ER revealed appendicitis, no abscess, she was taken to OR for appendectomy, tolerated well. min pain today, OR dressing intact, blood cultures done in ER, + this am 1/2 gnr. She is on zosyn, tolerating well. eating clears but little appetite, denies n/v. no gu symptoms. wbc 6.9. creat 1.1. tmax 37.9. no cp, sob, cough. anxious to be d/c. Allergies Allergy/AdvReac Type Severity Reaction Status Date / Time No Known Allergies Allergy Unverified 09/16/19 11:17 Home Medications Home Medications Medication Instructions Recorded Confirmed Type ibuprofen 200 mg PO Q6H PRN 09/16/19 09/16/19 History Patient History Medical History Anxiety Family history of diabetes mellitus History of depression HTN (hypertension) Morbid obesity with BMI of 40.0-44.9, adult hemorrhage Surgical History No history of previous surgery Social History Preferred Language: Swazi Communication Ability: Effective Paint Specialist Required: No Beliefs That Will Affect Care: None marital status: Current Living Situation: Spouse Current Living Situation Comment: DAUGHTERS 2 YO AND 6 YO Other Information That Helps Us Care for You: No Feels Safe at Home: Yes Safety Concerns: Feels Safe At This Time Smoking Status: Never smoker Do You Dip or Chew Tobacco: No ; Second Hand Exposure: No ; Hx Alcohol Use: Yes Alcohol type: beer Hx Substance Use: No Review of Systems Review of Systems: All systems reviewed & are unremarkable except as noted in HPI & below Physical Exam Constitutional: WD/WN, vitals as above Eyes: PERRL, conjunctivae normal, anicteric sclerae ENMT: external ear and nose normal, oropharynx normal Neck: normal visual inspection Respiratory: normal respiratory effort, lungs clear to auscultation Cardiovascular: RRR, no murmur, no edema Gastrointestinal (Abdomen): normal bowel sounds, soft, nontender, no hepat osplenomegaly Percussion/Palpation: abdomen soft; abdomen nontender, no guarding and abdomen not rigid Musculoskeletal: no cyanosis or clubbing, extremities motor strength 5/5 Skin: no rashes, warm and dry dressing c/d/i Psychiatric: A+Ox3, euthymic affect Results & Data Vital Signs (Past 12 Hours) Vital Signs Temp Pulse Resp BP Pulse Ox 09/17/19 07:00 37.0 C 80 14 129/79 94 09/17/19 03:10 37.2 C 71 14 121/80 93 09/16/19 22:50 37.0 C 86 16 117/83 94 09/16/19 21:54 36.8 C 78 17 118/74 94 Laboratory Results Microbiology 09/16/19 11:15 Blood Anaerobic Blood Culture - Preliminary Gram negative bacilli PG Care Time/CCT Total # of Minutes Spent Total Time Spent with Patient: Total time spent is greater than 50% in coordination of care (as documented) at patient's floor/unit and/or counseling patient:
--- NOTE | 2019-09-17 09:58 | Surgery Progress Note ---
Date of Service September 17, 2019 Assessment & Plan (1) Acute appendicitis: POD # 1 s/p laparoscopic appendectomy -afebrile, vital signs stable, no leukocytosis - 1/2 positive blood cultures for gram negative bacilli, ID/sensitivities still pending - urine culture sent - post op pain controlled Plan: Infectious disease consulted, recommend PO Levaquin for 14 days although sensitivities still pending. Low likelihood of resistant organisms. Patient doing well, will plan for discharge home with PO Levaquin for 14 days and PO Percocet prn pain Advised pt to monitor for fever, chills, sweats, increasing pain f/u surgical office in 1-2 weeks (2) Gram-negative bacteremia: Plan as above Dr. Cruz has seen and examined pt, agrees with above Subjective feeling well this morning preop pain resolved, tender at incision sites no nausea or vomiting tolerating clear so far no fevers last night Physical Exam Constitutional: WD/WN, vitals as above no acute distress Respiratory: no respiratory distress Gastrointestinal (Abdomen): Inspection/Auscultation: abdomen normal to inspection; abdomen not distended Percussion/Palpation: + abdomen tender (at incisions only) and abdomen soft; no guarding and abdomen not rigid Skin: no rashes, warm and dry + incision (clean/dry dressing intact) Psychiatric: A+Ox3, euthymic affect Results & Data Vital Signs (Past 12 Hours) Vital Signs Temp Pulse Resp BP Pulse Ox 09/17/19 07:00 37.0 C 80 14 129/79 94 09/17/19 03:10 37.2 C 71 14 121/80 93 09/16/19 22:50 37.0 C 86 16 117/83 94 09/16/19 21:54 36.8 C 78 17 118/74 94 Laboratory Results 09/17/19 09/17/19 09/16/19 Range/Units 05:11 05:11 11:15 WBC 6.99 (4.8-10.8) K/uL RBC 3.98 L (4.2-5.4) M/uL Hgb 12.2 (12.0-16.0) g/dL Hct 37.0 (37-47) % MCV 93.0 (80-100) fL MCH 30.7 (25-34) pg MCHC 33.0 (32-36) g/dL RDW Std Deviation 45.1 (36.4-46.3) fL RDW Coeff of Alfonso 13.3 (11.5-14.5) % Plt Count 147 (130-400) K/uL MPV 11.2 H (7.4-10.4) fL Immature Gran % (Auto) 0.3 % Neut % (Auto) 82.4 % Lymph % (Auto) 11.6 % Wagoner % (Auto) 5.7 % Eos % (Auto) 0.0 % Baso % (Auto) 0.0 % Immature Gran # (Auto) 0.02 (0.00-0.02) K/uL Neut # (Auto) 5.76 (1.4-6.5) K/uL Lymph # (Auto) 0.81 L (1.2-3.4) K/uL Wagoner # (Auto) 0.40 (0.11-0.59) K/uL Eos # (Auto) 0.00 (0-0.5) K/uL Baso # (Auto) 0.00 (0-0.2) K/uL Sodium 138 (136-145) mmol/L Potassium 4.0 D (3.5-5.1) mmol/L Chloride 107 (98-107) mmol/L Carbon Dioxide 23 (21-32) mmol/L Anion Gap 8.0 (3-11) BUN 8 (7-18) mg/dl Creatinine 1.12 (0.6-1.2) mg/dl Est Cr Clr Drug Dosing 95.6 ml/min Est GFR ( Amer) 74.7 Est GFR (Non-Af Amer) 64.5 BUN/Creatinine Ratio 7.0 L (10-20) Glucose 161 H (70-99) mg/dl Lactate 1.1 (0.4-2.0) mmol/L Calcium 8.5 (8.5-10.1) mg/dl Magnesium (1.8-2.4) mg/dl Total Bilirubin 1.9 H D (0.2-1) mg/dl AST 20 (15-37) U/L ALT 14 (12-78) U/L Alkaline Phosphatase 57 (45-117) U/L Total Protein 7.0 (6.4-8.2) gm/dl Albumin 3.0 L (3.4-5.0) gm/dl Globulin 4.0 (2.5-4.0) gm/dl Albumin/Globulin Ratio 0.8 L (0.9-2) Urine Color Urine Appearance (Clear) Urine pH (4.5-7.5) Ur Specific Belden (1.000-1.030) Urine Protein (Negative) Urine Glucose (UA) (Negative) Urine Ketones (Negative) Urine Blood (Negative) Urine Nitrite (Negative) Urine Bilirubin (Negative) Urine Urobilinogen (Negative) Ur Leukocyte Esterase (Negative) Urine WBC (Auto) (0-5) /hpf Urine RBC (Auto) (0-4) /hpf U Hyaline Cast (Auto) (0-5) /lpf U Epithel Cells (Auto) (0-5) /lpf Urine Bacteria (Auto) (Negative) POC Ur Test (NEG) 09/16/19 09/16/19 09/16/19 Range/Units 11:15 11:15 10:15 WBC 6.70 (4.8-10.8) K/uL RBC 4.33 (4.2-5.4) M/uL Hgb 13.2 (12.0-16.0) g/dL Hct 38.9 (37-47) % MCV 89.8 (80-100) fL MCH 30.5 (25-34) pg MCHC 33.9 (32-36) g/dL RDW Std Deviation 41.6 (36.4-46.3) fL RDW Coeff of Alfonso 12.7 (11.5-14.5) % Plt Count 140 (130-400) K/uL MPV 11.5 H (7.4-10.4) fL Immature Gran % (Auto) 0.4 % Neut % (Auto) 89.6 % Lymph % (Auto) 5.2 % Wagoner % (Auto) 4.8 % Eos % (Auto) 0.0 % Baso % (Auto) 0.0 % Immature Gran # (Auto) 0.03 H (0.00-0.02) K/uL Neut # (Auto) 6.00 (1.4-6.5) K/uL Lymph # (Auto) 0.35 L (1.2-3.4) K/uL Wagoner # (Auto) 0.32 (0.11-0.59) K/uL Eos # (Auto) 0.00 (0-0.5) K/uL Baso # (Auto) 0.00 (0-0.2) K/uL Sodium 135 L (136-145) mmol/L Potassium 3.1 L (3.5-5.1) mmol/L Chloride 106 (98-107) mmol/L Carbon Dioxide 23 (21-32) mmol/L Anion Gap 6.0 (3-11) BUN 6 L (7-18) mg/dl Creatinine 1.03 (0.6-1.2) mg/dl Est Cr Clr Drug Dosing 97.3 ml/min Est GFR ( Amer) 82.7 Est GFR (Non-Af Amer) 71.4 BUN/Creatinine Ratio 6.3 L (10-20) Glucose 142 H (70-99) mg/dl Lactate (0.4-2.0) mmol/L Calcium 8.9 (8.5-10.1) mg/dl Magnesium 1.5 L (1.8-2.4) mg/dl Total Bilirubin 1.2 H (0.2-1) mg/dl AST 23 (15-37) U/L ALT 15 (12-78) U/L Alkaline Phosphatase 82 (45-117) U/L Total Protein 7.7 (6.4-8.2) gm/dl Albumin 3.8 (3.4-5.0) gm/dl Globulin 3.9 (2.5-4.0) gm/dl Albumin/Globulin Ratio 1.0 (0.9-2) Urine Color Dark Yellow Urine Appearance Clear (Clear) Urine pH 6.0 (4.5-7.5) Ur Specific Belden 1.022 (1.000-1.030) Urine Protein Trace H (Negative) Urine Glucose (UA) Negative (Negative) Urine Ketones 2+ H (Negative) Urine Blood Trace H (Negative) Urine Nitrite Negative (Negative) Urine Bilirubin Negative (Negative) Urine Urobilinogen Negative (Negative) Ur Leukocyte Esterase Trace H (Negative) Urine WBC (Auto) 1-5 (0-5) /hpf Urine RBC (Auto) 0-4 (0-4) /hpf U Hyaline Cast (Auto) 5-10 H (0-5) /lpf U Epithel Cells (Auto) >30 H (0-5) /lpf Urine Bacteria (Auto) Negative (Negative) POC Ur Test (NEG) 09/16/19 Range/Units 10:15 WBC (4.8-10.8) K/uL RBC (4.2-5.4) M/uL Hgb (12.0-16.0) g/dL Hct (37-47) % MCV (80-100) fL MCH (25-34) pg MCHC (32-36) g/dL RDW Std Deviation (36.4-46.3) fL RDW Coeff of Alfonso (11.5-14.5) % Plt Count (130-400) K/uL MPV (7.4-10.4) fL Immature Gran % (Auto) % Neut % (Auto) % Lymph % (Auto) % Wagoner % (Auto) % Eos % (Auto) % Baso % (Auto) % Immature Gran # (Auto) (0.00-0.02) K/uL Neut # (Auto) (1.4-6.5) K/uL Lymph # (Auto) (1.2-3.4) K/uL Wagoner # (Auto) (0.11-0.59) K/uL Eos # (Auto) (0-0.5) K/uL Baso # (Auto) (0-0.2) K/uL Sodium (136-145) mmol/L Potassium (3.5-5.1) mmol/L Chloride (98-107) mmol/L Carbon Dioxide (21-32) mmol/L Anion Gap (3-11) BUN (7-18) mg/dl Creatinine (0.6-1.2) mg/dl Est Cr Clr Drug Dosing ml/min Est GFR ( Amer) Est GFR (Non-Af Amer) BUN/Creatinine Ratio (10-20) Glucose (70-99) mg/dl Lactate (0.4-2.0) mmol/L Calcium (8.5-10.1) mg/dl Magnesium (1.8-2.4) mg/dl Total Bilirubin (0.2-1) mg/dl AST (15-37) U/L ALT (12-78) U/L Alkaline Phosphatase (45-117) U/L Total Protein (6.4-8.2) gm/dl Albumin (3.4-5.0) gm/dl Globulin (2.5-4.0) gm/dl Albumin/Globulin Ratio (0.9-2) Urine Color Urine Appearance (Clear) Urine pH (4.5-7.5) Ur Specific Belden (1.000-1.030) Urine Protein (Negative) Urine Glucose (UA) (Negative) Urine Ketones (Negative) Urine Blood (Negative) Urine Nitrite (Negative) Urine Bilirubin (Negative) Urine Urobilinogen (Negative) Ur Leukocyte Esterase (Negative) Urine WBC (Auto) (0-5) /hpf Urine RBC (Auto) (0-4) /hpf U Hyaline Cast (Auto) (0-5) /lpf U Epithel Cells (Auto) (0-5) /lpf Urine Bacteria (Auto) (Negative) POC Ur Test NEG (NEG) Diagnostic Findings Microbiology 09/16/19 11:15 Anaerobic Blood Culture - Preliminary Blood Gram negative bacilli
--- NOTE | 2019-09-19 09:15 | Operative Report ---
DATE OF OPERATION: 09/17/2019 ADMITTING DIAGNOSIS: Acute appendicitis. DISCHARGE DIAGNOSIS: Acute appendicitis. OPERATION: Laparoscopic appendectomy. SURGEON: Andi Oquendo MD. DETAIL OF DISCHARGE SUMMARY: This is a 34-year-old female who presented to ER with 1.5 days of abdominal pain, nausea, diarrhea and the patient had a CT scan diagnosis of acute appendicitis. We took the patient to the OR. We did a laparoscopic appendectomy. The patient tolerated the procedure well. After procedure, the patient transferred to recovery room in stable condition and later on transferred to regular floor. The patient is doing fine. PHYSICAL EXAMINATION: VITAL SIGNS: Temperature is 37, respiratory rate 14, heart rate 80, blood pressure 129/79, O2 saturation 94% on room air. GENERAL: The patient is alert, awake, oriented x3. HEENT: Within normal limitation. NEUROLOGIC: Intact. NECK: No JVD. CHEST: Bilateral lung sounds clear. HEART: Normal S1, S2. No murmur. ABDOMEN: Soft, only incision pain. No drainage, no redness on the incision site. EXTREMITIES: No edema. The patient wanted to go home. We gave the patient postop care instruction and based on the patient's blood culture positive, infection disease doctor Recommend 2 weeks Levaquin p.o. The patient understands and discharged the patient home on 09/17/2019. Also, I will follow up the patient in 1 week in my office. The patient understands. I attest to the content of the Intraoperative Record and any orders documented therein. Any exceptions are noted below. MTDD
--- NOTE | 2019-09-19 15:39 | Discharge Summary ---
Date of Service September 19, 2019 Admission HPI Per Admitting Provider Christina is a 34 year-old female who presented to emergency department today with complaint of Right lower quadrant abdominal pain that began Monday evening. Patient states she had associated diarrhea as well as nausea and vomiting. She had fever high of 102.7 at home. She states pain consistently increased over the weekend. Never had similar type of pain before. Has not had much of an appetite. ER work-up included labs which showed no leukocytosis. CT scan of abdomen and pelvis showing dilated appendix at 1.6 cm with an appendicolith present consistent with acute appendicitis. There is no fluid collection to suggest abscess or perforation. She does have splenomegaly with spleen measuring 16.3 cm. Vital signs showed heart rate in the 130s and blood pressure 169/106. She states she usually does not have any issues with her blood pressure but is nervous about needing surgery. No prior abdominal surgeries. No blood thinning agents. No family history of blood clots or bleeding disorders. Principal Diagnosis Acute appendicitis with appendicolith Discharge Data Allergies Allergy/AdvReac Type Severity Reaction Status Date / Time No Known Allergies Allergy Unverified 09/16/19 11:17 Consultations 09/17/19 07:33 Consult Infectious Diseases Routine Procedures Performed Operation Date: 09/16/19 10:10 Actual Procedures p Laparoscopic Appendectomy(Not Applicable) - Andi Lawrence MD Ordered Studies 09/16/19 10:25 CT abd pelvis IV con only Stat Hospital Course (1) Acute appendicitis: Patient was taken to operating room for laparoscopic appendectomy possible open by Dr. lawrence from emergency department. Patient was found to have severe appendicitis with no perforation or abscess however significant inflammation of the cecum secondary to the appendicitis. Patient was found to have very concentrated/cloudy urine after Rendon catheterization. She also became febrile intraoperatively in which anesthesia had to try to cool her down somewhat. Patient tolerated procedure well and was transferred to recovery then to medical/surgical floor for postoperative care. POD # 1 afebrile throughout the night into the morning, vitals stable, minimal post op pain. Adequate urine output throughout the night. Diet was advanced to clear liquids. Pain controlled. Unfortunately 1/2 blood cultures were positive for gram negative bacilli but identification and sensitivities were pending. Clinically she was doing very well. Infectious disease consulted and recommended oral Levofloxacin for 14 days as there was low likelihood of resistant organisms. Patient was discharged home with oral abx for 14 days on POD #1 in stable condition. (2) Gram-negative bacteremia: hospital course as above Home with 14 days of PO Levofloxacin Total Time Total Time Spent Total Time Spent (In Minutes): 30 Total Time Includes: Examination of the Patient, Discharge Planning, Medication Reconciliation and Communication With Other Providers Discharge Plan Discharge Items Patient Disposition: Home - Self-Care Reason For Visit: VOMITING,LOWER ABDOMINAL PAIN Discharge Diagnosis: Acute appendicitis Bacteremia (bacteria in blood stream) Condition on Discharge: Good Activity: As commented below Non-emergency contact: Surgeon Call non-emergency contact if: you have any medication questions, your pain is not controlled, your pain is worsening, your pain is unusual for you, your pain is concerning for you, you have a fever, your wound has increased redness, your wound has increased drainage and your wound pain has increased Follow-up/Referrals: Gloria Price DO [Primary Care Provider] - Diet: Regular Addtl Attending Provider Instructions: Post-Surgical ~Discharge Instructions Activity Recommendations: - lifting limitation: (20 pounds for 3-4 weeks), - exercise/sex/sports limit: (nonstrenuous for 2 weeks), - driving or machine use limit: (none for 1 week), - Shower/bathe limit: (may shower beginning tonight) Diet: - Resume previous diet SPECIAL CARE INSTRUCTIONS: - May shower tonight. Let water run over area and pat dry. - Leave steri strips on for one week. - Call the surgeon's office with any questions or concerns - - (ex. temperature higher than 101 degrees F, excessive bleeding or pain). - If you have fever, chills, sweats, increasing in pain please go to emergency d epartment given the positive blood cultures. MEDICATIONS: - Resume previous medications unless instructed otherwise by your surgeon. - Ibuprofen 600 mg every 6 hours with food - Percocet 1 every 4 hours, as needed for pain - Take oral antibiotics as prescribed for 2 weeks. If the blood cultures show you need a different antibiotic you will be called to change the antibiotic therapy. FOLLOW UP VISIT: - If not already scheduled, please call the office to schedule a two week follow-up appointment. Office number Pending Studies at Discharge: Yes (Appendix pathology and blood culture results) Stand-Alone Forms: Call Back Authorization, [facility], Smoking Cessation, Important Visit Information Medications and DC Order Prescriptions: New oxycodone-acetaminophen [Percocet] 5-325 mg Tablet 1 tab PO Q4H PRN (Reason: pain) Qty: 5 RF: 0 levofloxacin 500 mg tablet 500 mg PO DAILY 14 Days Qty: 14 RF: 0 Continued ibuprofen 200 mg Tablet 200 mg PO Q6H PRN (Reason: Pain) RF: 0 Discharge Orders: Discharge Order (Routine); Ordered 09/17/19 Ordered By: Lisseth West Admission Data Admit Date/Time: 09/16/19 18:37 Attending Provider: Andi Lawrence Admit Provider: Andi Lawrence Primary Care Provider: Gloria Price Other Providers: Lindsey Johnson Other Interventions: Discharge Summary Assessment (RN) Last Done: 09/17/19 10:19 DC Date/Time DO NOT enter until pt leaves facility: 09/17/19 10:46
--- NOTE | 2019-09-26 15:16 | Coding Query ---
SEPSIS To promote full compliance with coding requirements relating to patient care, physician participation is requested in all cases of environmental health manager uncertainty. Please assist us with the question(s) below: In responding to this query, please exercise your independent professional judgement. The fact that a question is asked does not imply that any particular answer is desired or expected. We appreciate your clarification on this issue. Throughout the medical record, you have clearly documented a localized infection and your patient has clinical evidence of a generalized sepsis or severe sepsis. The term urosepsis is a nonspecific entity and is coded as an UTI. If the patient has sepsis, severe sepsis, from an urinary source or some other source, please clarify in your response below. The medical record reflects the following clinical findings: Patient admitted with severe appendicitis. Progress notes document Sepsis, Discharge Summary states bacteremia. Seeking to clarify the diagnosis, after study that was treated. Please check below if applies. Thank you ! DELANEY Adamson [facility] ____ ( x)Bacteremia (Nonspecific laboratory finding of bacteria in the blood) Specify Organism (x ) Present on Admission ( ) Not present on admission ( ) Unable to clinically determine ( ) Septicemia (Systemic disease associated with the presence of pathogenic microorganisms in the blood): Specify Organism ( ) Present on Admission ( ) Not present on admission ( ) Unable to clinically determine ( ) Sepsis Specify Organism Specify Associated Condition/Diagnosis ( ) Present on Admission ( ) Not present on admission ( ) Unable to clinically determine ( ) Severe Sepsis (Sepsis associated with acute organ dysfunction) Specify Organism Specify Associated Condition/Diagnosis ( ) Present on Admission ( ) Not present on admission ( ) Unable to clinically determine ( ) Septic Shock (Severe sepsis with acute circulatory failure, unexplained by other causes) ( ) Present on Admission ( ) Not present on admission ( ) Unable to clinically determine ( ) Other, patient has: MTDD
== END 2019-09-17 10:46 | disposition home or self-care (01) | DRG 342 ==
LOC: ED 10:15 → OR 15:55 → 3N 18:37